=== PATIENT | male | born 1960 | race Caucasian/White ===

== ENCOUNTER 2018-02-26 13:36 | Outpatient (CLI) | END 2018-02-26 13:37 | disposition home or self-care (01) | LOC: AMBL 13:36 | PROVIDERS: ATTEND Emergency Medicine | DX: R07.89 Other chest pain (principal); M25.519 Pain in unspecified shoulder; M54.9 Dorsalgia, unspecified; V69.9XXA Occupant (driver) (passenger) of heavy transport vehicle injured in unspecified traffic accident, initial encounter ==